=== PATIENT | male | born 1995 | race African-American/Black ===

== ENCOUNTER 2020-03-26 07:55 | Emergency (ER) | payer MEDICAID ==
[~2020-03-26] VITALS: Ht 170.2 cm; Wt 50.0 kg
[~2020-03-26 07:55] MED LIST: BENZ2TAB7 PO; CARB100T4 PO; DOCU250C69 PO; OLAN10TA19 PO; PANT40TA4 PO; PARO10TA87 PO; QUET300T19 MT; VALP250C3 PO; ZIPR60CA6 MT; ZOLP10TA6 MT
[2020-03-26] MEDS ORDERED: SODIUM CHLORIDE 0.9% 1,000 ML IV ONE (08:15)
[2020-03-26] MEDS ORDERED: LORAZEPAM 2MG/ML CPJ IV ONE ×2 (08:45→12:00)
[2020-03-26 09:13] LABS: BASOPHILS % 0.4 % (0.0-2.0); EOSINOPHILS % 3.3 % (0.0-5.0); HEMATOCRIT. 37.3 % (42.0-52.0); HEMOGLOBIN. 12.1 g/dL (14.0-18.0); LYMPHOCYTES % 35.7 % (20.0-50.0); MEAN CORPUSCULAR VOLUME 82.9 fL (80.0-94.0); MEAN PLATELET VOLUME 6.8 fl (7.4-10.4); MONOCYTES % 13.2 % (2.0-8.0); NEUTROPHILS % 47.4 % (40.0-76.0); PLATELET 377 x1000/uL (130-400); RED CELL DISTRIBUTION WIDTH 15.5 % (11.6-14.6)
[2020-03-26 09:19] LABS: CHLORIDE 111 mEq/L (98-107)
[2020-03-26] MEDS ORDERED: OLANZAPINE 5MG TABLET ODT PO ONE (11:45)
[2020-03-26] MEDS ORDERED: DIPHENHYDRAMINE 50MG/ML VIAL IV ONE (12:00)
[2020-03-26] MEDS ORDERED: OLANZAPINE 10 MG/VIAL IM ONE (15:30)
[2020-03-26 17:32] VITALS: BP 130/74
== END 2020-03-26 18:56 | disposition home or self-care (01) ==
LOC: ER 08:03
DX: G40.909 Epilepsy, unspecified, not intractable, without status epilepticus (principal); F84.0 Autistic disorder; Z93.1 Gastrostomy status
CPT/HCPCS: 36415; 80048; 85025; 93005; 96361; 96372; 96374; 96375; 96376; 99285; J1200; J2060; J3490; J7030